=== PATIENT | female | born 1995 ===

== ENCOUNTER 2021-07-22 08:00 | Outpatient (CLI) | payer SELFPAY ==
[2021-07-22 18:59] LABS: BILIRUBIN,URINE NEGATIVE (NEGATIVE); OCCULT BLOOD,URINE NEGATIVE (NEGATIVE)
[2021-07-22 19:04] LABS: CLARITY,URINE CLOUDY (CLEAR)
[2021-07-22 19:06] LABS: BACTERIA,URINE Few /HPF (None Seen); RBC,URINE 0-5 /HPF (0-5); SQUAMOUS EPITHELIAL CELL,UR NONE SEEN (<= Few); WBC,URINE 0-3 /HPF (0-5)
== END 2021-07-22 23:59 | disposition home or self-care (01) ==
LOC: LAB.S 08:00
PROVIDERS: ATTEND Emergency Medicine
DX: R30.0 Dysuria (principal)
CPT/HCPCS: 81001; 87086